=== PATIENT | male | born 1960 | race Caucasian/White ===

== ENCOUNTER → 2024-12-23 | Outpatient (CLI) | payer OTHER ==
[2024-12-23 10:03] LABS: African American GFR (CKD) >90 (>60 ml/min/1.73 sqM); Blood Urea Nitrogen 14 mg/dL (9-20); Non-African American GFR(CKD) >90 (>60 ml/min/1.73 sqM)
--- NOTE | 2024-12-26 07:41 | CT ---
EXAMINATION TYPE: CT angio abdomen pelvis DATE OF EXAM: 12/23/2024 11:05 AM COMPARISON: None. CLINICAL INDICATION: Male, 64 years old with history of I71.43 INFRARENAL ABDOMINAL AORTIC ANEURYSM, WITHO; PHH, infrarenal abdominal aortic aneurysm TECHNIQUE: Multiple thin slice sub-millimeter images were obtained after administration of contrast. MIP reconstructed images and maximum intensity projection images were obtained. 3D reconstructed images and maximum intensity projection images were obtained. CT angio abdomen pelvis CT Contrast: Contrast used:100 mL of Isovue 370 with IV Contrast, Oral contrast used: without Oral Contrast None CT DLP: 694.70 mGycm, Automated exposure control for dose reduction was used. FINDINGS: CTA Abdomen and pelvis: There appears to be a stent within the proximal abdominal aorta. Celiac axis and superior mesenteric artery vessels with contrast. Renal artery origins contrast. Below the stent abdominal aortic aneurysm with stent extending into the iliac vessels. Contrast withi n the aortic stent. No endovascular leak into the aneurysm is identified. Contrast extends to the com mon femoral arteries. The common iliac arteries and right internal/external iliac arteries are patent . Review obstruction of the proximal left external carotid artery. CT ABDOMEN: Liver: Normal Spleen: Normal Pancreas: Normal Adrenal glands: The adrenal glands are normal. Gallbladder: Gallstones are present. Some minimal fluid may be adjacent to the gallbladder. Correlate for acute cholecystitis. Kidneys: No masses are evident. No hydronephrosis is present. No cysts are present. Aorta: Vascular calcification is within the aorta. Abdominal aortic aneurysm without contrast is pre sent Inferior vena cava: Normal. CT PELVIS: Loops of bowel within the abdomen and pelvis are normal. This study is without oral contrast into bowel evaluation Appendix: Normal as visualized. Urinary bladder: Decompressed with limited evaluation Genitourinary structures: Prostate is slightly prominent. Osseous structures: No suspicious lytic or sclerotic lesions. IMPRESSION: 1. No endovascular leak within the stented abdominal aortic aneurysm. 2. Cholelithiasis. Clinical consideration for acute cholecystitis is recommended. This could be evalu ated with ultrasound. [facility], Workstation: [id number], 12/26/2024 7:39 AM
== END | disposition home or self-care (01) ==
LOC: RADCTMAIN 09:24
PROVIDERS: ATTEND Surgery
DX: I71.43 Infrarenal abdominal aortic aneurysm, without rupture (principal); K80.20 Calculus of gallbladder without cholecystitis without obstruction
CPT/HCPCS: 82565; 84520; 36415; 74174; Q9967